=== PATIENT | female | born 1935 | race Caucasian/White ===

== ENCOUNTER 2022-05-21 15:40 | Inpatient (IN) | payer MEDICARE, MEDICAID, SELFPAY ==
[2022-05-21] VITALS (10 sets, daily range): BP systolic 133–143; BP diastolic 77–83; PULSE 85–114; RESP 17–20; TEMP 36.7–37.1; O2SAT 91–99; BMI 35.5
--- NOTE | 2022-05-21 15:59 | XRR_ITS ---
PROCEDURE INFORMATION: Exam: XR Chest Exam date and time: 05/21/2022 4:15 PM Age: 86 years old Clinical indication: Other: Hypoxia; Additional info: Hypoxia, covid? TECHNIQUE: Imaging protocol: Radiologic exam of the chest. Views: 1 view. COMPARISON: No relevant prior studies available. FINDINGS: Tubes, catheters and devices: Right PICC line terminates at the distal SVC. Lungs: Ill-defined peripheral opacities within the mid and lower lungs. Pleural spaces: Unremarkable. No pleural effusion. No pneumothorax. Heart/Mediastinum: Unremarkable. No cardiomegaly. Bones/joints: Sternotomy wires noted. Visualized osseous structures are intact. XR/XR chest 1V portable [id number] IMPRESSION: Ill-defined peripheral opacities within the mid and lower lungs suggestive of infiltrates.
--- NOTE | 2022-05-21 16:06 | P.HP_ITS ---
Providers/Chief Complaint Admitting Physician: Js Davis MD Primary Care Provider: Sandro Montana Chief Complaint: COVID Pneumonia History of Present Illness Alyx Jeffries is a 86 year old female who has been sent to our hospital for cardiac work-up. She has been admitted to the hospital for last 6 days for treatment of superimposed bacterial infection with underlying COVID-19, patient was diagnosed with COVID-19 on 30 April, she was discharged home however because of her worsening of symptoms she was admitted to the hospital. Her initial symptoms were nausea couple of episode of emesis without diarrhea. She never experienced any chest pain. At baseline uses 2 L secondary to her COPD, ex-smoker. Lives with her niece who is her power of mergers and acquisitions attorney. Patient is stating that this time she was struggling to breathe and was requiring more oxygen. Records were reviewed from outside facility, there is no summary available however from the laboratory work-up it seems like her kidney function has remained stable no severe leukocytosis, she received remdesivir, Decadron, Levaquin and vancomycin. She was on DVT prophylaxis Lovenox regimen. There was 1 day when her platelet dropped to 97,000 however they have been in upper 110s. No active bleeding. No chest pain. Patient has been transferred to our hospital because of her transient A. fib rhythm and worsening of infiltrate on her chest x-ray necessitating cardiac work-up. At the time of my evaluation she was on 4 L, respiratory please call me with the severe hypoxic values however I do believe there was venous blood gas I have requested RT to get an ABG Patient has no symptoms at all she is very pleasant and cooperative stating that she is DNR/DNI and her niece is the power of mergers and acquisitions attorney I requested venous Doppler, echo and CTA to rule out PE chest x-ray does show bilateral infiltrate procalcitonin is pending she is afebrile Review of Systems Const: Reports: chills, body aches and fatigue Eyes: Denies: change in vision ENMT: Denies: throat pain Card: Reports: dyspnea on exertion; Denies: chest pain Resp: Reports: dyspnea and productive cough GI: Reports: nausea : Denies: flank pain Musc: Denies: neck pain Skin/Breast: Denies: rash Neuro: Denies: headache(s) Psych: Reports: anxiety Endo: Denies: polyuria Jose De Jesus/Lymph: Denies: easy bruising All/Imm: Denies: urticaria Medications/Allergies Home Medications Medication Instructions Recorded Confirmed Last Taken Type ascorbic acid (vitamin C) 500 mg 500 mg PO DAILY 05/21/22 05/22/22 Unknown History tablet (Vitamin C) furosemide 80 mg tablet 80 mg PO DAILY 05/21/22 05/22/22 Unknown History gemfibrozil 600 mg tablet 600 mg PO BID 05/21/22 05/22/22 Unknown History glipizide 5 mg tablet 5 mg PO DAILY 05/21/22 05/22/22 Unknown History glucosamine sulfate 1,000 mg 1,000 mg PO DAILY 05/21/22 05/22/22 Unknown History capsule metoprolol tartrate 50 mg tablet 50 mg PO BID 05/21/22 05/22/22 Unknown History multivitamin 1 tab PO DAILY 05/21/22 05/22/22 Unknown History simvastatin 40 mg tablet 40 mg PO QPM 05/21/22 05/22/22 Unknown History tiotropium bromide 18 mcg capsule 1 cap inhalation DAILY 05/21/22 05/22/22 Unknown History with inhalation device (Spiriva with HandiHaler) albuterol sulfate 90 mcg/actuation 2 puff inhalation QID PRN 05/22/22 05/22/22 Unknown History aerosol inhaler Shortness Of Breath aspirin 81 mg tablet,delayed 81 mg PO DAILY 05/22/22 05/22/22 Unknown History release budesonide 0.5 mg/2 mL suspension 0.5 mg inhalation BID 05/22/22 05/22/22 Unknown History for nebulization cholecalciferol (vitamin D3) 10 10 mcg PO DAILY 05/22/22 05/22/22 Unknown History mcg (400 unit) tablet (Vitamin D3) cholecalciferol (vitamin D3) 25 25 mcg PO DAILY 05/22/22 05/22/22 Unknown History mcg (1,000 unit) tablet (Vitamin D3) potassium chloride 10 mEq 10 meq PO BID 05/22/22 05/22/22 Unknown History capsule,extended release Allergies Allergy/AdvReac Type Severity Reaction Status Date / Time ibuprofen Allergy Mild Unknown Verified 05/21/22 17:59 PFSH Acute PFSH: Medical History Chronic kidney disease Congestive heart failure COPD (chronic obstructive pulmonary disease) DNR (do not resuscitate) Hypertension Osteoarthritis Oxygen dependent 2L Type 2 diabetes mellitus Surgical History Hx of CABG Family History Other Diabetes Social History Smoking and tobacco status: former smoker Alcohol intake: never Household members: caregiver Physical Exam Narrative: Patient is sitting in a recliner currently on 4 L Bilateral breath sounds with crackles No conversational dyspnea Very pleasant cooperative Nonfocal neuro exam No signs of cyanosis Congestive heart failure signs present Bilateral lower extremity edema Patient is wearing compression stockings Abdomen soft S1, S2 Currently on 4 L without respiratory distress Appropriate mood and affect Data : 05/22/22 04:10 05/22/22 04:10 A&P Assessment and plan (1) COVID-19: Status: Acute (2) CHF exacerbation: Status: Acute (3) Thrombocytopenia: Status: Acute (4) A-fib: Status: Acute (5) Acute and chronic respiratory failure with hypoxia: Status: Acute Plan #COVID-19 pneumonia with superimposed bacterial infection #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 Continue on ceftriaxone and azithromycin ? Continue aspirin, dexamethasone 6 mg daily -Patient already completed 6 days of remdesivir at previous hospital so we will not repeat that at this time ? Continue on vitamin C, zinc, vitamin D supplements ? Continue on Lasix 40 IV daily ? Continue Tessalon Perles, inhaled budesonide ? Protonix 40 daily ?D-dimer is high. Check procalcitonin, check CTA chest to rule out PE, check venous Dopplers, check echo, check ABG -Check MRSA nares PCR, sputum culture gram stain, urine culture, repeat blood cultures -Check abdomen CT pelvis ? Due to COVID we will keep on Lovenox 80 twice daily therapeutic dose ED prophylaxis: On therapeutic Lovenox DNR/DNI Attestations Medical Necessity Statement*: Anticipating more than 2 midnights for management of superimposed bacterial infection COVID-19 infection Time Spent in Patient Care: 40 Coding Level of Care Code Acute Picker Machine Operator for Chg Fwd Diagnoses COVID-19 U07.1 CHF exacerbation I50.9 Thrombocytopenia D69.6 A-fib I48.91 Acute and chronic respiratory failure with hypoxia J96.21
[2022-05-21] MEDS: ipratropium-albuterol 3 mL Neb INHALATION ×3 (16:35→23:34)
--- NOTE | 2022-05-21 16:56 | ECG_ITS ---
[facility] Test Date: 2022-05-21 Pat Name: Alyx Jeffries Department: Room: 261 Gender: Female Counter Tender: : 1935 Requested By: Sabrina Fernandes Order Number: [id number] Sepideh MD: Mary Young M.D. Measurements Intervals Morris Rate: 103 P: 12 SC: 151 QRS: 26 QRSD: 76 T: 43 QT: 272 QTc: 358 Interpretive Statements SINUS TACHYCARDIA NONSPECIFIC ST & T-WAVE ABNORMALITY No previous ECG available for comparison Electronically Signed On 05-22-2022 6:10:15 CDT by Mary Young M.D. [id number]
[2022-05-21 17:28] LABS: Basophils % 0.1 %; Eosinophils % 0.1 %; Hematocrit 34.2 % (37.0-47.0); Hemoglobin 10.9 g/dL (11.5-15.3); Lymphocytes # 0.9 10^3/uL (0.8-4.8); Lymphocytes % 10.4 %; Mean Corpuscular HGB Conc 31.9 g/dL (30.0-36.0); Mean Corpuscular Hemoglobin 31.9 pg (28.0-34.0); Mean Platelet Volume 10.4 fL (7.4-10.4); Monocytes # 0.9 10^3/uL (0.2-0.9); Monocytes % 10.9 %; Neutrophils # 6.62 10^3/uL (1.8-7.7); Neutrophils % 77.9 %; Nucleated Red Blood Cells % 0 %; Platelet Count 135 10^3/cmm (130-400); Red Blood Count 3.42 10^6/uL (4.1-5.3); Red Cell Distribution Width 13.3 % (12.1-15.1); White Blood Count 8.5 10^3/uL (4.0-10.0)
[2022-05-21 17:46] LABS: INR 1.21 (0.8-1.2)
[2022-05-21 17:48] LABS: D Dimer 1.26 ug/mIFEU (0-0.59)
--- NOTE | 2022-05-21 17:52 | USCV_ITS ---
Alyx Jeffries Age: 86 Gender: F : 1935 Exam Date: 05/21/2022 19:11 Ordering Phys: Israel Rey MD Technologist: KADE Exam Location: [facility] [place] Indication: Chronic LE edema. No history of DVT per patient. HISTORY: Chronic LE edema. No history of DVT per patient. PROCEDURES: Venous duplex imaging was performed in bilateral lower extremities. The venous duplex Doppler examination of both lower extremities was performed in the standard fashion. The following venous structures were evaluated: common femoral vein, profunda vein, proximal portion of the greater saphenous vein, superficial femoral vein, and the popliteal vein. In addition, the posterior tibial veins were evaluated. Serial compression, augmentation maneuvers, and spectral Doppler flow evaluation were performed, which were normal. Bilaterally, the common femoral, superficial femoral, profunda femoral, popliteal, posterior tibial, and greater saphenous veins were identified and interrogated in the standard fashion. FINDINGS: Normal 2-D Doppler and augmentation and compressibility throughout the lower extremity venous structures. Additional imaging through the proximal calf veins also reveals no thrombus. Limited evaluation of the greater saphenous vein is patent with no thrombus. CONCLUSIONS No DVT bilateral lower extremities. Dr. Jessica Bright DO (Electronically Signed) Final Date: 22 May 2022 07:55 S
[2022-05-21 17:56] LABS: Troponin T (5th) Once 9 ng/L (0-10)
[2022-05-21 18:03] LABS: Procalcitonin 0.14 ng/mL (0-0.5)
[2022-05-21 18:14] LABS: Alanine Aminotransferase 26 U/L (0-33); Albumin Level 2.6 g/dL (3.5-5.2); Alkaline Phosphatase 70 U/L (35-105); Anion Gap 18.7 (5-19); Aspartate Amino Transferase 37 U/L (0-32); Blood Urea Nitrogen 18 mg/dL (8-23); C Reactive Protein 188.6 mg/L (0.0-4.9); Calcium 8.9 mg/dL (8.5-10.5); Carbon Dioxide 24 mmol/L (22-29); Chloride 96 mmol/L (98-107); Ferritin 539 ng/mL (15-150); Globulin 3.2 g/dL (1.3-4.6); Glucose 223 mg/dL (65-115); Magnesium 2.2 mg/dL (1.7-2.3); Osmolality Calculated 289 mOsm/kg (285-295); Phosphorus 2.9 mg/dL (2.5-4.5); Potassium 3.7 mmol/L (3.5-5.1); Sodium 135 mmol/L (136-145); Total Bilirubin 0.3 mg/dL (0.15-1.2); Total Protein 5.8 g/dL (6.6-8.7)
[2022-05-21 18:15] LABS: Lactic Sepsis W/Reflex 2.3 mmol/L (0.5-2.2)
[2022-05-21 18:16] LABS: ABG PH Result 7.48 (7.35-7.45); Arterial Blood Gas Hematocrit 34.6 % (37-47); Base Excess ABG 4.8 mmol/L (-2.0-2.0); Blood Gas Allen Test Pos; Blood Gas Sample Type Arterial; HCO3 ABG 28.5 mmol/L (22-26); PO2 ABG 46.8 mmHg (80.0-100.0)
[2022-05-21 18:21] LABS: NT Pro B Type Natriuretic Pept 900 pg/mL (0-450)
[2022-05-21 18:30] LABS: Chol HDL Ratio 3.19 mg/dL (0.0-4.40); Cholesterol 86 mg/dL (0-200); HDL Cholesterol 27 mg/dL (60-100); LDL Cholesterol Calculated 32 mg/dL (50-129); LDL HDL Ratio 1.19 RATIO (0.00-3.22); Triglycerides 135 mg/dL (0-150)
[2022-05-21 18:33] LABS: Blood Gas Sample Site Radial, right; Oxygen Device NC
[2022-05-21] MEDS: enoxaparin 80 mg/0.8 mL Syringe SUBCUT (18:33)
--- NOTE | 2022-05-21 18:35 | USCV_ITS ---
Alyx Jeffries Age: 86 Gender: F : 1935 Exam Date: 05/21/2022 20:48 Ordering Phys: Israel Rey MD Technologist: KADE Exam Location[place] [facility] [place] Indication: CHF. History of CABG 1998. BP: 133 / 77 HR: 110 Rhythm: Sinus tachycardia Technical Quality: Suboptimal MEASUREMENTS (Male / Female) Normal Values 2D ECHO LV Diastolic Diameter PLAX 3.5 cm 4.2 - 5.9 / 3.9 - 5.3 cm LV Systolic Diameter PLAX 2.0 cm IVS Diastolic Thickness 1.3 cm 0.6 - 1.0 / 0.6 - 0.9 cm IVS Systolic Thickness 1.6 cm LVPW Diastolic Thickness 1.5 cm 0.6 - 1.0 / 0.6 - 0.9 cm LVPW Systolic Thickness 1.7 cm LVOT Diameter 1.8 cm LV Ejection Fraction 2D Teich 74.8 % LV Ejection Fraction MOD 2C 79.5 % LV Ejection Fraction 2C AL 80.9 % LA Diameter 4.0 cm LA Width 2.9 cm LA Height 4.3 cm RA Width 4.0 cm RA Height 5.1 cm Aorta at Sinotubular Diameter 2.5 cm IVC Diameter 1.2 cm M-MODE Aortic Annulus Diameter 2.7 cm LA Ao Ratio MM 1.8 MV E Point Septal Separation 0.2 cm DOPPLER AV Peak Velocity 168.0 cm/s LVOT Peak Velocity 120.0 cm/s AV Area Cont Eq vti 1.8 cm squared AV Area Cont Eq pk 1.9 cm squared MV Area PHT 3.0 cm squared Mitral E to A Ratio 0.8 MV E' Velocity 45.0 cm/s Mitral E to MV E' Ratio 7.9 Mitral E to LV E' Lateral Ratio 6.4 Mitral E to LV E' Septal Ratio 10.3 TR Peak Velocity 308.0 cm/s TR Peak Gradient 37.9 mmHg TV Peak E Velocity 43.0 cm/s Right Atrial Pressure 10.0 mmHg Pulmonary Artery Systolic Pressu 47.9 mmHg PV Peak Velocity 141.0 cm/s RV Acceleration Time 0.1 s RV Ejection Time 0.3 s RV AcT/ET 0.2 FINDINGS Left Ventricle Normal left ventricular size, systolic function and wall thickness, with no regional wall motion abnormalities. Grade I/IV diastolic dysfunction (abnormal relaxation filling pattern), normal to mildly elevated filling pressures. Left ventricular ejection fraction is estimated at 60 %. Right Ventricle Normal right ventricular size and systolic function. Mild pulmonary hypertension, RVSP 47.9 mmHg. Right Atrium The right atrium is normal in size. Left Atrium Mildly increased left atrial size. Mitral Valve Structurally normal mitral valve. Trace mitral valve regurgitation. Aortic Valve Structurally normal trileaflet aortic valve. Mild aortic valve calcification. Mild aortic valve stenosis, mean gradient 5.1 mmHg, GINGER 1.8 cm squared. No aortic valve regurgitation. Tricuspid Valve Structurally normal tricuspid valve. [id number] tricuspid valve regurgitation. Pulmonic Valve Pulmonic valve not well visualized. Pericardium Normal pericardium without effusion. Aorta Normal ascending aorta dimension. IVC The inferior vena cava does not collapse normally with respiration. Right atrial pressure approximately 10 mmHg. CONCLUSIONS Normal left ventricular size, systolic function and wall thickness, with no regional wall motion abnormalities. Grade I/IV diastolic dysfunction (abnormal relaxation filling pattern), normal to mildly elevated filling pressures. Left ventricular ejection fraction is estimated at 60 %. Normal right ventricular size and systolic function. Mild pulmonary hypertension, RVSP 47.9 mmHg. Mildly increased left atrial size. Structurally normal mitral valve. Trace mitral valve regurgitation. Structurally normal trileaflet aortic valve. Mild aortic valve calcification. Mild aortic valve stenosis, mean gradient 5.1 mmHg, GINGER 1.8 cm squared. No aortic valve regurgitation. The inferior vena cava does not collapse normally with respiration. Right atrial pressure approximately 10 mmHg. There are no prior echocardiogram studies to compare. Dr. Nathaniel Aldana MD (Electronically Signed) Final Date: 22 May 2022 09:10 S
--- NOTE | 2022-05-21 18:35 | CTR_ITS ---
PROCEDURE INFORMATION: Exam: CTA Chest With Contrast Exam date and time: 05/21/2022 11:09 PM Age: 86 years old Clinical indication: Abnormal findings; Abnormal diagnostic tests; Elevated d-dimer; Shortness of breath; Prior surgery; Surgery type: Cabg; Patient HX: SOB with elevated d dimer. ; Additional info: Hypoxia TECHNIQUE: Imaging protocol: Computed tomographic angiography of the chest with contrast. 3D rendering (Not supervised by radiologist): MIP and/or 3D reconstructed images were created by the technologist. Radiation optimization: All CT scans at this facility use at least one of these dose optimization techniques: automated exposure control; mA and/or kV adjustment per patient size (includes targeted exams where dose is matched to clinical indication); or iterative reconstruction. Contrast material: OMNI 350; Contrast volume: 97 ml; Contrast route: INTRAVENOUS (IV); COMPARISON: CR (CHEST, ) 05/21/2022 4:15 PM RADIATION DOSE METRICS: Total DLP (mGy-cm): 719.8 FINDINGS: Pulmonary arteries: Pulmonary arteries are normal in caliber. No filling defects are demonstrated. No evidence of pulmonary embolism. Aorta: Atherosclerosis of the thoracic aorta. No aneurysm or dissection. Lungs: Diffuse bilateral ground-glass and confluent infiltrates noted throughout both lungs. Pleural spaces: No pleural effusion demonstrated. Heart: Mild cardiomegaly is noted. The coronary arteries demonstrate atherosclerotic calcifications. There is no significant pericardial effusion present. Lymph nodes: Nonspecific mild mediastinal adenopathy noted. Lymph nodes measuring up to 10 mm short axis are present. Liver: Calcified granulomas are seen in the liver. Spleen: Calcified granulomas are noted in the spleen. Bones/joints: Median sternotomy noted. Mild degenerative spine changes. No fracture or other acute osseous abnormality. Soft tissues: The soft tissues appear unremarkable. CT/CT angio chest PE protcl [id number] IMPRESSION: 1. No evidence of pulmonary embolism. 2. Diffuse bilateral ground-glass and confluent infiltrates noted throughout both lungs. Commonly reported imaging features of COVID-19 pneumonia are present. Other processes such as influenza pneumonia and organizing pneumonia, as can be seen with drug toxicity and connective tissue disease, can cause a similar imaging pattern. (Reference: Vijay) 3. Mild cardiomegaly is noted. 4. Nonspecific mild mediastinal adenopathy noted. Lymph nodes measuring up to 10 mm short axis are present. REFERENCES: Vijay Falcon, et al., Radiological Society of [place] Expert Consensus Statement on Reporting Chest CT Findings Related to COVID-19. Endorsed by the Society of Thoracic Radiology, the [place] [employer], and RSNA. Published December 14, 2019.
[2022-05-21 19:00] LABS: ABG PCO2 38.9 mmHg (35-45); ABG PH Result 7.47 (7.35-7.45); Alveolar-Arterial Oxygen Gradi 20.2 mmHg (5-10); Arterial Blood Gas Hematocrit 34.8 % (37-47); Base Excess ABG 4.5 mmol/L (-2.0-2.0); Blood Gas Allen Test Pos; Blood Gas Operator Identificat MONRO; Blood Gas Sample Site Radial, left; Blood Gas Sample Type Arterial; Carboxyhemoglobin 1.4 %THgb (0.4-20.1); HCO3 ABG 28.4 mmol/L (22-26); HGB O2 Sat 87.6 % (95-100); Ionized Calcium Level - ABG 1.2 mmol/L (1.1-1.4); Methemoglobin 0.7 % (0.4-1.5); Oxygen Device NC; Oxygen Saturation ABG 89.4; PO2 ABG 52.9 mmHg (80.0-100.0); Potassium Level - ABG 3.8 mmol/L (3.5-5.0); Total Hemoglobin 11.4 g/dL (12-16)
[2022-05-21 19:09] LABS: Reflex Lactate Order REFLEX LACTIC ORDERD
[2022-05-21] MEDS: budesonide 0.5 mg/2 mL Neb INHALATION (20:20)
[2022-05-21] MEDS: FUROsemide 10 mg/mL SDV 2mL 20 MG IVP (20:42)
[2022-05-21] MEDS: metoprolol tartrate 50 mg Tablet PO (20:46)
[2022-05-21] MEDS: potassium chloride ER 20 mEq Tablet PO (20:46)
[2022-05-21 23:02] LABS: Add Urine Microscopic? NO; Charge for UA Resulting for Rev
[2022-05-21 23:06] LABS: Bilirubin Urine Neg (Negative); Blood Urine Neg (Negative); Glucose Urine UA Norm (Normal); Ketones Urine Negative (Negative); Leukocyte Esterase Urine Negative (Negative); Nitrate Urine Negative (Negative); Protein Urine Neg (Negative); Urine Appearance Clear (CLEAR); Urine Color Yellow (Yellow); Urobilinogen Urine Norm (Negative); pH Urine 6 (5-7)
[2022-05-21] MEDS: iohexol 350 mg/mL 100 mL Btl IV (23:20)
[2022-05-22] VITALS (67 sets, daily range): BP systolic 91–135; BP diastolic 56–79; PULSE 62–168; RESP 0–96; TEMP 36.5–36.9; O2SAT 89–96
[2022-05-22] MEDS: ipratropium-albuterol 3 mL Neb INHALATION ×6 (04:51→23:45)
[2022-05-22 05:06] LABS: Basophils % 0.1 %; Eosinophils # 0.1 10^3/uL (0.0-0.8); Eosinophils % 1.4 %; Hematocrit 33.6 % (37.0-47.0); Hemoglobin 10.5 g/dL (11.5-15.3); Lymphocytes # 1.2 10^3/uL (0.8-4.8); Lymphocytes % 13.9 %; Mean Corpuscular HGB Conc 31.3 g/dL (30.0-36.0); Mean Corpuscular Hemoglobin 31.2 pg (28.0-34.0); Mean Corpuscular Volume 99.7 fl (81-99); Mean Platelet Volume 10.8 fL (7.4-10.4); Monocytes # 1.1 10^3/uL (0.2-0.9); Monocytes % 11.9 %; Neutrophils # 6.37 10^3/uL (1.8-7.7); Nucleated Red Blood Cells % 0 %; Platelet Count 151 10^3/cmm (130-400); Red Blood Count 3.37 10^6/uL (4.1-5.3); Red Cell Distribution Width 13.6 % (12.1-15.1); White Blood Count 8.8 10^3/uL (4.0-10.0)
[2022-05-22 05:07] LABS: ABG PCO2 40.7 mmHg (35-45); ABG PH Result 7.46 (7.35-7.45); Arterial Blood Gas Hematocrit 46.9 % (37-47); Base Excess ABG 4.7 mmol/L (-2.0-2.0); Blood Gas Allen Test Pos; Blood Gas Operator Identificat JB; Blood Gas Sample Site Radial, right; Blood Gas Sample Type Arterial; Oxygen Device HAG
[2022-05-22 05:40] LABS: Anion Gap 13.7 (5-19); Blood Urea Nitrogen 20 mg/dL (8-23); C Reactive Protein 129.6 mg/L (0.0-4.9); Calcium 8.9 mg/dL (8.5-10.5); Carbon Dioxide 29 mmol/L (22-29); Chloride 96 mmol/L (98-107); Glucose 175 mg/dL (65-115); Osmolality Calculated 287 mOsm/kg (285-295); Potassium 3.7 mmol/L (3.5-5.1); Sodium 135 mmol/L (136-145)
[2022-05-22] MEDS: enoxaparin 80 mg/0.8 mL Syringe SUBCUT (05:43)
[2022-05-22 05:46] LABS: Lactate (Lactic Acid level) 2.2 mmol/L (0.5-2.2)
[2022-05-22] MEDS: digoxin 250 mcg/ml INJ 2 mL 500 MCG IVP (06:38)
[2022-05-22 06:45] LABS: Ferritin 461 ng/mL (15-150)
--- NOTE | 2022-05-22 06:46 | PC.NURSE ---
TRANSFER Waiting for CSU bed. Digoxin IVP given. Will get Amiodorone started when moved to monitored bed
[2022-05-22 07:12] LABS: Thyroid Stimulating Hormone 1.38 uIU/mL (0.27-4.20)
--- NOTE | 2022-05-22 07:17 | CT_ITS ---
WS: [id number] CT ABDOMEN AND PELVIS NONCONTRAST HISTORY: bacteremia TECHNIQUE: Imaging performed through the abdomen and pelvis. Coronal and sagittal reformats are submi tted. All CT scans at [facility] use at least one of these dose optimization techniques: auto mated exposure control; mA and/or kV adjustment per patient size (includes targeted exams where dose is matched to clinical indication); or iterative reconstruction. DLP: 869.29 mGy.cm COMPARISON: None available. Lower thorax: Dense areas of consolidation and irregular opacifications at the lung bases. Heart is n ormal size. Small hiatal hernia. Liver: Mild hepatic steatosis and granulomata. Lobulated surface. Gallbladder: Negative unenhanced appearance of the gallbladder. Pancreas: Normal size and attenuation. Normal pancreatic duct. No pancreatitis or mass. Spleen: 14.2 cm in length. Adrenal glands: Normal. No mass. Right kidney: Mild atrophy and cortical thinning. Nonobstructing calcification. Vascular calcificatio ns. Contrast in the renal pelvis from a recent IV contrast injection. Left kidney: Mild atrophy. 1 cm cortical cyst upper pole. Additional calcifications and contrast with in the renal pelvis. Aorta: Moderate to severe atherosclerosis abdominal aorta. No aneurysm. Atherosclerosis continues int o the common iliac arteries. Moderate calcification at the origin of the celiac axis and SMA. No free fluid, intraperitoneal air or significant lymphadenopathy. GI tract: Negative stomach. No small bowel obstruction. The appendix is not identified with certainty . No secondary findings of appendicitis. Numerous diverticula throughout the colon. No evidence for a cute diverticulitis. Abdominal wall: Small umbilical hernia contains fat only. Small foci of air in the soft tissues of th e LEFT abdomen from prior injections. Pelvis: Atrophic uterus. No mass. No free fluid. Negative urinary bladder. Bladder is well distended with IV contrast from the prior injection. Osseous structures: Advanced spondylitic changes in the lumbar spine. L2 retrolisthesis by 5 mm. L5 a nterolisthesis by 7 mm and bilateral pars defects. CT/CT abdomen pelvis wo con [id number] IMPRESSION: 1. Dense areas of consolidation opacifications at the lung bases consistent wi th pneumonia. 2. No ascites or adenopathy. 3. 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 Spleen is enlarged. 4. Distal colon diverticulosis without acute diverticulitis. 5. No acute inflammatory process within the abdomen. 6. 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
--- NOTE | 2022-05-22 07:50 | PM.PN ---
Subjective Subjective: This morning. Patient is on heated high flow 35 L with 50% FiO2. I discussed with patient if she further deteriorates if she would be okay with BiPAP versus being intubated. She states that she has a living will and her all her kids know about this as well that she would not want to be intubated at all and she does not want CPR attempted either. She is a strict DNR/DNI. Regarding BiPAP mask she said when time comes we can talk about it. She is comfortable right now on 35 L. She says she does feel slightly short of breath when she moves around in the room otherwise is okay. Has not bringing up any phlegm. Denies chest pain. No lower extremity swelling. Early this morning patient went into A. fib with RVR. Amiodarone drip was ordered but it could not be given on the floor she was on. She was also given digoxin load. By the time she was moved to cardiac floor and drip was about to be started. Her heart rate came down to 80 range. Amnio drip was not given. She is asymptomatic at this time. Vitals/I&O/Wt Last Vital Signs Temp 97.7 F 05/22/22 04:00 Pulse 144 H 05/22/22 06:00 Resp 17 05/22/22 04:53 BP 96/56 05/22/22 04:00 Pulse Ox 91 05/22/22 04:53 O2 Del Method 05/22/22 04:52 O2 Flow Rate 30 05/22/22 04:53 FiO2 60 05/22/22 04:53 05/21/22 05/22/22 05/22/22 22:59 06:59 14:59 Intake Total 120 / 120 360 / 480 Output Total 600 / 600 1200 / 1800 Balance -480 / -480 -840 / -1320 Weight last 48 hrs Weight 85.275 kg Physical Exam Narrative: General: Alert oriented x3, patient seen laying in recliner appearing comfortable at this time on 35 L high at high flow. HEENT: Normocephalic, atraumatic, EOMI, breathing normally Cardio: Regular rate rhythm, normal S1-S2 Respiratory: Diffuse rhonchi lower half of bilateral lung sherman, otherwise coarse breath sounds GI: Abdomen soft, nontender, nondistended, bowel sounds + Behavior: Appropriate and cooperative Extremities: 1+ edema bilaterally lower extremity Data : 05/22/22 04:10 05/22/22 04:10 Micro: Microbiology 05/21/22 22:55 Legionella Urinary Antigen - Final Urine,Clean Catch 05/21/22 17:01 Blood Culture - Preliminary Blood SPECIMEN COLLECTED 05/21/22 17:06 Blood Culture - Preliminary Blood SPECIMEN COLLECTED A&P Assessment and plan (1) Acute and chronic respiratory failure with hypoxia: Status: Acute (2) A-fib: Status: Acute (3) Thrombocytopenia: Status: Acute (4) CHF exacerbation: Status: Acute (5) COVID-19: Status: Acute Plan #COVID-19 pneumonia with superimposed bacterial infection #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 Continue on ceftriaxone and azithromycin ? Continue aspirin, dexamethasone 6 mg daily -Patient already completed 6 days of remdesivir at previous hospital so we will not repeat that at this time ? Continue on vitamin C, zinc, vitamin D supplements ? Continue on Lasix 40 IV daily ? Continue Tessalon Perles, inhaled desonide ? Protonix 40 daily ? Continue on digoxin. 500 load given this morning. Will load and start on 125 starting tomorrow. -Check MRSA nares PCR, sputum culture gram stain, urine culture, repeat blood cultures -Check abdomen CT pelvis ? CTA chest ruled out PE ? Due to COVID we will keep on Lovenox 80 twice daily therapeutic dose PT OT ordered but will start once patient's oxygen requirements come down CODE STATUS: DNR/DNI Will update her niece over the phone today. 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
[2022-05-22] MEDS: budesonide 0.5 mg/2 mL Neb INHALATION ×2 (08:01→21:38)
--- NOTE | 2022-05-22 08:16 | PC.PHAR ---
pts halinajarocho godoy [phone] states the pt has been in a different hospital and was sent here last night-medications entered are medications the pt was taking at home before her stay at a different hospital and this hospital-unsure of medication pt was receiving at the other hospital-pt brought in med bottles-meds were in pts room in a black bag by the sink-pts alo states the pt uses budesonide 0.5mg bid states she didnt send that with the pt-
[2022-05-22] MEDS: azithromycin 250 mg Tablet 500 MG PO (10:19)
[2022-05-22] MEDS: sennosides-docusate Tablet 1 TAB PO (10:19)
[2022-05-22] MEDS: cefTRIAXone 1,000 MG in sodium chloride 0.9% (plus) 50 ML 100 MG IV (10:19)
[2022-05-22] MEDS: dexamethasone 4 mg Tablet 6 MG PO (10:20)
[2022-05-22] MEDS: ascorbic acid 500 mg Tablet PO (10:20)
[2022-05-22] MEDS: aspirin 81 mg EC Tablet PO (10:20)
[2022-05-22] MEDS: potassium chloride ER 20 mEq Tablet PO (10:20)
[2022-05-22] MEDS: pantoprazole DR 40 mg Tablet PO (10:20)
--- NOTE | 2022-05-22 12:25 | XR_ITS ---
WS: [id number] Exam: XR chest 1V portable [id number] Date/Time of Exam: 05/22/2022 12:26 PM Reason For Exam: follow up Comparison 05/21/2022. Patchy infiltrates noted throughout both lungs show little change since the last exam. Heart size is top limits normal. Signs of previous median sternotomy. Right-sided PICC line ends at the cavoatrial junction. No pleural effusions or pneumothorax. Bony structures are intact. XR/XR chest 1V portable [id number] IMPRESSION: 1. Patchy infiltrates noted throughout both lungs suggesting pneumonia. No sign ificant change.
[2022-05-22] MEDS: digoxin 250 mcg/ml INJ 2 mL IVP (13:00)
[2022-05-22] MEDS: metoprolol tartrate 25 mg Tablet PO (14:02)
--- NOTE | 2022-05-22 14:36 | PC.OT ---
HOLD OT EVALUATION TODAY DUE TO ELEVATED HR AND CONTINUED NEED FOR HEATED HIGH FLOW.
[2022-05-23] VITALS (22 sets, daily range): BP systolic 116–153; BP diastolic 54–94; PULSE 94–118; RESP 16–26; TEMP 36.4–36.8; O2SAT 91–97
[2022-05-23] MEDS: ipratropium-albuterol 3 mL Neb INHALATION ×5 (03:18→20:15)
[2022-05-23 05:29] LABS: Hematocrit 30.3 % (37.0-47.0); Hemoglobin 9.7 g/dL (11.5-15.3); Lymphocytes # 0.3 10^3/uL (0.8-4.8); Lymphocytes % 10.3 %; Mean Corpuscular Hemoglobin 31.4 pg (28.0-34.0); Mean Corpuscular Volume 98.1 fl (81-99); Mean Platelet Volume 10.1 fL (7.4-10.4); Monocytes # 0.4 10^3/uL (0.2-0.9); Monocytes % 15.4 %; Neutrophils # 1.87 10^3/uL (1.8-7.7); Neutrophils % 73.9 %; Nucleated Red Blood Cells % 0 %; Platelet Count 114 10^3/cmm (130-400); Red Blood Count 3.09 10^6/uL (4.1-5.3); Red Cell Distribution Width 13.6 % (12.1-15.1); White Blood Count 2.5 10^3/uL (4.0-10.0)
[2022-05-23 05:51] LABS: Alanine Aminotransferase 21 U/L (0-33); Albumin Level 2.6 g/dL (3.5-5.2); Alkaline Phosphatase 66 U/L (35-105); Aspartate Amino Transferase 17 U/L (0-32); Blood Urea Nitrogen 14 mg/dL (8-23); Calcium 9.5 mg/dL (8.5-10.5); Carbon Dioxide 29 mmol/L (22-29); Globulin 2.9 g/dL (1.3-4.6); Glucose 300 mg/dL (65-115); Total Bilirubin 0.3 mg/dL (0.15-1.2); Total Protein 5.5 g/dL (6.6-8.7)
[2022-05-23 06:33] LABS: Anion Gap 15.5 (5-19); Chloride 98 mmol/L (98-107); Osmolality Calculated 298 mOsm/kg (285-295); Potassium 4.5 mmol/L (3.5-5.1); Sodium 138 mmol/L (136-145)
[2022-05-23] MEDS: budesonide 0.5 mg/2 mL Neb INHALATION ×2 (08:03→20:16)
[2022-05-23] MEDS: sennosides-docusate Tablet 1 TAB PO (09:10)
[2022-05-23] MEDS: aspirin 81 mg EC Tablet PO (09:10)
[2022-05-23] MEDS: ascorbic acid 500 mg Tablet PO (09:10)
[2022-05-23] MEDS: dexamethasone 4 mg Tablet 6 MG PO (09:10)
[2022-05-23] MEDS: pantoprazole DR 40 mg Tablet PO (09:10)
[2022-05-23] MEDS: potassium chloride ER 20 mEq Tablet PO (09:10)
[2022-05-23] MEDS: enoxaparin 40 mg/0.4 mL Syringe SUBCUT (09:11)
[2022-05-23] MEDS: digoxin 125 mcg Tablet PO (10:13)
--- NOTE | 2022-05-23 14:15 | PM.PN ---
Subjective Subjective: seen this AM. patient still requiring HHF 35L. Feels better however eating breakfast when seen Niece was updated on phone yesterday. BG 300 this AM. Vitals/I&O/Wt Last Vital Signs Temp 98.0 F 05/23/22 11:28 Pulse 106 H 05/23/22 12:13 Resp 18 05/23/22 12:13 BP 135/67 05/23/22 11:28 Pulse Ox 96 05/23/22 12:13 O2 Del Method 05/23/22 12:13 O2 Flow Rate 35 05/23/22 12:13 FiO2 35 05/23/22 12:13 05/22/22 05/23/22 05/23/22 22:59 06:59 14:59 Intake Total 320 / 1550 160 / 1710 474 / 474 Output Total 800 / 800 300 / 1100 Balance -480 / 750 -140 / 610 474 / 474 Weight last 48 hrs Weight 85.275 kg Physical Exam Narrative: General: Alert oriented x3, patient seen laying in recliner appearing comfortable at this time on 35 L high at high flow. HEENT: Normocephalic, atraumatic, EOMI, breathing normally Cardio: Regular rate rhythm, normal S1-S2 Respiratory: Diffuse rhonchi lower half of bilateral lung sherman, otherwise coarse breath sounds GI: Abdomen soft, nontender, nondistended, bowel sounds + Behavior: Appropriate and cooperative Extremities: 1+ edema bilaterally lower extremity Data : 05/23/22 05:21 05/23/22 05:21 Micro: Microbiology 05/21/22 21:00 Gram Stain - Final Sputum - Expectorated Sputum Sputum Culture - Preliminary 05/21/22 18:15 Urine Culture - Final Urine,Voided 05/21/22 17:01 Blood Culture - Preliminary Blood NEGATIVE TO DATE 05/21/22 17:06 Blood Culture - Preliminary Blood NEGATIVE TO DATE 05/21/22 21:45 MRSA Culture - Final Nose 05/21/22 22:55 Legionella Urinary Antigen - Final Urine,Clean Catch Bacterial Antigens - Final A&P Assessment and plan (1) Acute and chronic respiratory failure with hypoxia: Status: Acute (2) A-fib: Status: Acute (3) Thrombocytopenia: Status: Acute (4) CHF exacerbation: Status: Acute (5) COVID-19: Status: Acute Plan #COVID-19 pneumonia with superimposed bacterial infection #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 Continue on imipenem q6h ? Continue aspirin, dexamethasone 6 mg daily - Patient already completed 6 days of remdesivir at previous hospital so we will not repeat that at this time ? Continue on vitamin C, zinc, vitamin D supplements ? Continue on Lasix 40 IV daily ? Continue Tessalon Perles, inhaled desonide ? Protonix 40 daily ? Continue on digoxin 125 mcg daily. -Check MRSA nares PCR, sputum culture gram stain, urine culture, repeat blood cultures -Check abdomen CT pelvis ? CTA chest ruled out PE ? lovenox 40 daily for DVT PPX. - BG high. Add sliding scale insulin and accuchecks. 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
[2022-05-23 16:47] LABS: Glucose Point of Care 467 mg/dL (70-110)
[2022-05-23] MEDS: insulin lispro 100 unit/1 mL SUBCUT ×2 (17:30→21:18)
[2022-05-23 17:52] LABS: Estmated Average Glucose 166; Hemoglobin A1C 7.4 % (4.0-6.0)
[2022-05-23 21:11] LABS: Glucose Point of Care 382 mg/dL (70-110)
[2022-05-23] MEDS: insulin glargine 100 units/1 mL 10 UNIT SUBCUT (21:18)
[2022-05-24] VITALS (21 sets, daily range): BP systolic 105–155; BP diastolic 53–74; PULSE 75–112; RESP 14–18; TEMP 36.5–37.4; O2SAT 90–96
[2022-05-24] MEDS: ipratropium-albuterol 3 mL Neb INHALATION ×6 (04:37→23:22)
[2022-05-24 05:35] LABS: Eosinophils % 0.8 %; Hematocrit 32.6 % (37.0-47.0); Hemoglobin 10.4 g/dL (11.5-15.3); Lymphocytes # 0.4 10^3/uL (0.8-4.8); Mean Corpuscular HGB Conc 31.9 g/dL (30.0-36.0); Mean Corpuscular Hemoglobin 31.4 pg (28.0-34.0); Mean Corpuscular Volume 98.5 fl (81-99); Mean Platelet Volume 10.2 fL (7.4-10.4); Monocytes # 0.5 10^3/uL (0.2-0.9); Monocytes % 20.7 %; Neutrophils # 1.58 10^3/uL (1.8-7.7); Neutrophils % 61.7 %; Nucleated Red Blood Cells % 0 %; Platelet Count 131 10^3/cmm (130-400); Red Blood Count 3.31 10^6/uL (4.1-5.3); Red Cell Distribution Width 13.5 % (12.1-15.1); White Blood Count 2.6 10^3/uL (4.0-10.0)
[2022-05-24 06:00] LABS: Blood Urea Nitrogen 17 mg/dL (8-23); C Reactive Protein 47.6 mg/L (0.0-4.9); Calcium 9.8 mg/dL (8.5-10.5); Carbon Dioxide 30 mmol/L (22-29); Chloride 99 mmol/L (98-107); Glucose 131 mg/dL (65-115); Magnesium 2.2 mg/dL (1.7-2.3); Osmolality Calculated 289 mOsm/kg (285-295); Sodium 138 mmol/L (136-145)
[2022-05-24 06:48] LABS: Glucose Point of Care 147 mg/dL (70-110)
[2022-05-24] MEDS: budesonide 0.5 mg/2 mL Neb INHALATION ×2 (07:26→19:45)
[2022-05-24] MEDS: insulin lispro 100 unit/1 mL SUBCUT ×4 (08:20→22:03)
[2022-05-24] MEDS: dexamethasone 4 mg Tablet 6 MG PO (09:50)
[2022-05-24] MEDS: enoxaparin 40 mg/0.4 mL Syringe SUBCUT (09:50)
[2022-05-24] MEDS: ascorbic acid 500 mg Tablet PO (09:51)
[2022-05-24] MEDS: pantoprazole DR 40 mg Tablet PO (09:51)
[2022-05-24] MEDS: digoxin 125 mcg Tablet PO (09:51)
[2022-05-24] MEDS: sennosides-docusate Tablet 1 TAB PO (09:51)
[2022-05-24] MEDS: aspirin 81 mg EC Tablet PO (09:51)
[2022-05-24 11:09] LABS: Glucose Point of Care 171 mg/dL (70-110)
--- NOTE | 2022-05-24 12:21 | PC.SOCIAL ---
IMM Update pg 2 of IMM updated and reviewed w/ patient. Copy provided and Copy dated, initialed and placed in chart.
--- NOTE | 2022-05-24 13:46 | PM.PN ---
Subjective Subjective: Patient is feeling a lot better compared to before. He is on 8 L nasal cannula at this time family present at bedside. She feels better and improving. Vitals/I&O/Wt Last Vital Signs Temp 98.3 F 05/24/22 12:00 Pulse 112 H 05/24/22 12:00 Resp 15 05/24/22 12:00 BP 105/53 05/24/22 12:00 Pulse Ox 92 05/24/22 12:00 O2 Del Method 05/24/22 12:00 O2 Flow Rate 5.5 05/24/22 12:00 FiO2 35 05/24/22 08:00 05/23/22 05/24/22 05/24/22 22:59 06:59 14:59 Intake Total 340 / 914 220 / 1134 640 / 640 Output Total 1200 / 1200 1100 / 2300 300 / 300 Balance -860 / -286 -880 / -1166 340 / 340 Physical Exam Narrative: General: Alert oriented x3, patient seen laying in recliner appearing comfortable at this time on 8 L of nasal cannula. HEENT: Normocephalic, atraumatic, EOMI, breathing normally Cardio: Regular rate rhythm, normal S1-S2 Respiratory: Diffuse rhonchi lower half of bilateral lung sherman, otherwise coarse breath sounds, no improvement in auscultation compared to yesterday. Mild crackles at bases. 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 Continue on imipenem q6h, will treat for total 7 days. ? Continue aspirin, dexamethasone 6 mg daily. She is status post Actemra on May 22, 2022 - Patient already completed 6 days of remdesivir at previous hospital so we will not repeat that at this time ? Continue on vitamin C, zinc, vitamin D supplements ? Give Lasix 40x1 today. ? Continue Tessalon Perles, inhaled budesonide ? Protonix 40 daily ? Continue on digoxin 125 mcg daily. -MRSA nares negative, sputum culture gram stain negative, bacterial antigens strep and Legionella negative. -Chest abdomen CT pelvis shows dense areas of consolidation opacifications at lung bases consistent with pneumonia, findings suspicion for cirrhosis and portal venous hypertension, spleen is enlarged ? CTA chest ruled out PE ? lovenox 40 daily for DVT PPX. -Continue Lantus 10 at bedtime, insulin sliding scale. ? We will check digoxin level. -Blood cultures negative during this stay. PT OT ordered but will start once patient's oxygen requirements come down CODE STATUS: DNR/DNI Family updated at bedside. Attestations Medical Necessity Statement*: Anticipate 48 to 72-hour stay at this time. Patient improving. 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
[2022-05-24] MEDS: FUROsemide 10 mg/mL SDV 4mL 40 MG IVP (14:10)
[2022-05-24 15:17] LABS: Digoxin 1.1 ng/mL (0.6-1.2)
[2022-05-24 17:04] LABS: Glucose Point of Care 416 mg/dL (70-110)
[2022-05-24 21:23] LABS: Glucose Point of Care 267 mg/dL (70-110)
[2022-05-24] MEDS: metoprolol tartrate 25 mg Tablet 12.5 MG PO (22:02)
[2022-05-24] MEDS: insulin glargine 100 units/1 mL 10 UNIT SUBCUT (22:03)
[2022-05-25] VITALS (19 sets, daily range): BP systolic 98–151; BP diastolic 58–84; PULSE 69–105; RESP 12–20; TEMP 36.6–36.9; O2SAT 91–99
[2022-05-25] MEDS: ipratropium-albuterol 3 mL Neb INHALATION ×6 (03:16→23:42)
[2022-05-25 06:19] LABS: Glucose Point of Care 173 mg/dL (70-110)
[2022-05-25 06:22] LABS: Eosinophils % 0.9 %; Hematocrit 33.7 % (37.0-47.0); Hemoglobin 10.7 g/dL (11.5-15.3); Lymphocytes # 0.4 10^3/uL (0.8-4.8); Lymphocytes % 18.5 %; Mean Corpuscular HGB Conc 31.8 g/dL (30.0-36.0); Mean Corpuscular Hemoglobin 31.5 pg (28.0-34.0); Mean Corpuscular Volume 99.1 fl (81-99); Mean Platelet Volume 10.3 fL (7.4-10.4); Monocytes # 0.5 10^3/uL (0.2-0.9); Monocytes % 24.1 %; Neutrophils # 1.18 10^3/uL (1.8-7.7); Neutrophils % 54.6 %; Nucleated Red Blood Cells % 0 %; Platelet Count 120 10^3/cmm (130-400); Red Cell Distribution Width 13.7 % (12.1-15.1); White Blood Count 2.2 10^3/uL (4.0-10.0)
[2022-05-25 06:39] LABS: Anion Gap 13.7 (5-19); Blood Urea Nitrogen 18 mg/dL (8-23); Calcium 9.6 mg/dL (8.5-10.5); Carbon Dioxide 33 mmol/L (22-29); Chloride 95 mmol/L (98-107); Glucose 167 mg/dL (65-115); Magnesium 2.2 mg/dL (1.7-2.3); Osmolality Calculated 290 mOsm/kg (285-295); Potassium 4.7 mmol/L (3.5-5.1); Sodium 137 mmol/L (136-145)
[2022-05-25] MEDS: budesonide 0.5 mg/2 mL Neb INHALATION ×2 (08:05→20:07)
[2022-05-25] MEDS: insulin lispro 100 unit/1 mL SUBCUT ×4 (09:08→21:46)
[2022-05-25] MEDS: enoxaparin 40 mg/0.4 mL Syringe SUBCUT (09:09)
[2022-05-25] MEDS: dexamethasone 4 mg Tablet 6 MG PO (09:11)
[2022-05-25] MEDS: sennosides-docusate Tablet 1 TAB PO (09:11)
[2022-05-25] MEDS: aspirin 81 mg EC Tablet PO (09:11)
[2022-05-25] MEDS: ascorbic acid 500 mg Tablet PO (09:12)
[2022-05-25] MEDS: pantoprazole DR 40 mg Tablet PO (09:12)
[2022-05-25] MEDS: metoprolol tartrate 25 mg Tablet 12.5 MG PO (09:12)
[2022-05-25] MEDS: FUROsemide 10 mg/mL SDV 4mL 40 MG IVP ×2 (09:21→20:55)
--- NOTE | 2022-05-25 09:25 | PC.NURSE ---
Dr. Fernandes gave verbal orders to give 40 mg of lasix ivp once.
--- NOTE | 2022-05-25 11:43 | PM.PN ---
Subjective Subjective: +1350 cc fluid balance. Vitals/I&O/Wt Last Vital Signs Temp 98.3 F 05/25/22 07:58 Pulse 104 H 05/25/22 11:21 Resp 20 H 05/25/22 11:16 BP 151/75 05/25/22 07:58 Pulse Ox 93 05/25/22 11:16 O2 Del Method 05/25/22 11:16 O2 Flow Rate 5 05/25/22 11:16 FiO2 35 05/25/22 04:00 05/24/22 05/25/22 05/25/22 22:59 06:59 14:59 Intake Total 1290 / 2030 340 / 2370 240 / 240 Output Total 900 / 1200 Balance 390 / 830 340 / 1170 240 / 240 Physical Exam Narrative: General: Alert oriented x3, patient seen laying in recliner appearing comfortable at this time on 5 L of nasal cannula. HEENT: Normocephalic, atraumatic, EOMI, breathing normally Cardio: Regular rate rhythm, normal S1-S2 Respiratory: Crackles bilaterally at bases, otherwise clear to auscultation GI: Abdomen soft, nontender, nondistended, bowel sounds + Behavior: Appropriate and cooperative Extremities: Trace edema bilaterally lower extremity Data : 05/25/22 05:00 05/25/22 05:00 Micro: Microbiology 05/21/22 21:00 Gram Stain - Final Sputum - Expectorated Sputum Sputum Culture - Final A&P Assessment and plan (1) Acute and chronic respiratory failure with hypoxia: Status: Acute (2) A-fib: Status: Acute (3) Thrombocytopenia: Status: Acute (4) CHF exacerbation: Status: Acute (5) COVID-19: Status: Acute Plan #COVID-19 pneumonia with superimposed bacterial infection #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 Continue on imipenem q6h, will treat for total 7 days. Patient did get Vanco and Levaquin at previous hospital and was deteriorating and not improving. ? Continue aspirin, dexamethasone 6 mg daily. She is status post Actemra on May 22, 2022 - Patient already completed 6 days of remdesivir at previous hospital so we will not repeat that at this time ? Continue on vitamin C, zinc, vitamin D supplements ? We will diurese patient. Lasix 40 IV twice daily. ? Continue Tessalon Perles, inhaled budesonide ? Protonix 40 daily ? Stop digoxin. -MRSA nares negative, sputum culture gram stain negative, bacterial antigens strep and Legionella negative. -Chest abdomen CT pelvis shows dense areas of consolidation opacifications at lung bases consistent with pneumonia, findings suspicion for cirrhosis and portal venous hypertension, spleen is enlarged ? CTA chest ruled out PE ? lovenox 40 daily for DVT PPX. -Continue Lantus 10 at bedtime, insulin sliding scale. -Blood cultures negative during this stay. -Restart metoprolol 25 twice daily and titrate up to 50. Home dose. PT OT CODE STATUS: DNR/DNI Family updated at bedside. Attestations Medical Necessity Statement*: Needs continued IV diuresis. Most likely will improve for the next 24 to 48 hours. 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
[2022-05-25 12:07] LABS: Glucose Point of Care 184 mg/dL (70-110)
[2022-05-25] MEDS: metoprolol tartrate 25 mg Tablet PO ×2 (12:46→20:55)
[2022-05-25 16:48] LABS: Glucose Point of Care 239 mg/dL (70-110)
[2022-05-25 21:39] LABS: Glucose Point of Care 257 mg/dL (70-110)
[2022-05-25] MEDS: insulin glargine 100 units/1 mL 10 UNIT SUBCUT (21:45)
[2022-05-26] VITALS (16 sets, daily range): BP systolic 98–154; BP diastolic 54–88; PULSE 72–120; RESP 12–20; TEMP 36.3–36.8; O2SAT 89–97
[2022-05-26] MEDS: ipratropium-albuterol 3 mL Neb INHALATION ×5 (03:02→19:34)
[2022-05-26 05:12] LABS: Hematocrit 36.1 % (37.0-47.0); Hemoglobin 11.5 g/dL (11.5-15.3); Lymphocytes # 0.5 10^3/uL (0.8-4.8); Mean Corpuscular HGB Conc 31.9 g/dL (30.0-36.0); Mean Corpuscular Hemoglobin 31.4 pg (28.0-34.0); Mean Corpuscular Volume 98.6 fl (81-99); Mean Platelet Volume 10.2 fL (7.4-10.4); Monocytes # 0.6 10^3/uL (0.2-0.9); Monocytes % 29.1 %; Neutrophils % 45.4 %; Nucleated Red Blood Cells % 0 %; Platelet Count 130 10^3/cmm (130-400); Red Blood Count 3.66 10^6/uL (4.1-5.3); Red Cell Distribution Width 13.9 % (12.1-15.1)
[2022-05-26 05:42] LABS: Anion Gap 14.4 (5-19); Blood Urea Nitrogen 22 mg/dL (8-23); Calcium 9.6 mg/dL (8.5-10.5); Carbon Dioxide 35 mmol/L (22-29); Chloride 93 mmol/L (98-107); Glucose 197 mg/dL (65-115); Osmolality Calculated 295 mOsm/kg (285-295); Potassium 4.4 mmol/L (3.5-5.1); Sodium 138 mmol/L (136-145)
[2022-05-26 05:45] LABS: Neutrophils # 0.89 10^3/uL (1.8-7.7)
[2022-05-26 06:21] LABS: Glucose Point of Care 189 mg/dL (70-110)
[2022-05-26] MEDS: budesonide 0.5 mg/2 mL Neb INHALATION ×2 (07:25→19:34)
[2022-05-26] MEDS: enoxaparin 40 mg/0.4 mL Syringe SUBCUT (09:31)
[2022-05-26] MEDS: dexamethasone 4 mg Tablet 6 MG PO (09:31)
[2022-05-26] MEDS: metoprolol tartrate 25 mg Tablet PO ×2 (09:32→20:25)
[2022-05-26] MEDS: sennosides-docusate Tablet 1 TAB PO (09:32)
[2022-05-26] MEDS: ascorbic acid 500 mg Tablet PO (09:32)
[2022-05-26] MEDS: pantoprazole DR 40 mg Tablet PO (09:32)
[2022-05-26] MEDS: aspirin 81 mg EC Tablet PO (09:32)
[2022-05-26] MEDS: FUROsemide 10 mg/mL SDV 4mL 40 MG IVP (09:32)
[2022-05-26] MEDS: insulin lispro 100 unit/1 mL SUBCUT ×4 (09:33→22:01)
--- NOTE | 2022-05-26 09:42 | PC.SOCIAL ---
IMM update IMM updated with patient. Verbalized an understanding. Initialled, dated, timed, and placed in chart.
[2022-05-26 11:39] LABS: Glucose Point of Care 251 mg/dL (70-110)
--- NOTE | 2022-05-26 15:18 | PM.PN ---
Subjective Subjective: Patient is currently saturating well on 3 L/min supplemental O2. 94%. Denies any dyspnea palpitations or chest pain. Feels well overall. Urine output at 2.9 L. Net -1.3 L over the last 24 hours. Leukopenic with WBC count at 2. Afebrile and hemodynamically stable. Medications: Reviewed: Yes Vitals/I&O/Wt Last Vital Signs Temp 98.2 F 05/26/22 11:41 Pulse 98 05/26/22 11:41 Resp 16 05/26/22 11:41 BP 112/71 05/26/22 11:41 Pulse Ox 94 05/26/22 11:41 O2 Del Method 05/26/22 11:41 O2 Flow Rate 3 05/26/22 11:13 FiO2 35 05/25/22 18:52 05/26/22 05/26/22 05/26/22 06:59 14:59 22:59 Intake Total 100 / 1260 960 / 960 Output Total 1500 / 2900 Balance -1400 / -1640 960 / 960 Physical Exam Narrative: General: No acute distress, AO x3 HEENT: PERRLA, pupils bilaterally equal and reactive, pallors not present Chest: Normal vesicular breath sounds, no added sounds, equal good air entry bilaterally CVS: S1-S2 regular, no murmurs, no tachycardia, no gallops, no rubs Abdomen: Soft, nontender, no organomegaly, bowel sounds present Neuro: No focal deficits, no facial deformity, AO x3, power 5/5 in all limbs Extremities: 1+ pitting edema Data : 05/26/22 04:45 05/26/22 04:45 A&P Assessment and plan (1) Acute and chronic respiratory failure with hypoxia: Status: Acute (2) A-fib: Status: Acute (3) Thrombocytopenia: Status: Acute (4) CHF exacerbation: Status: Acute (5) COVID-19: Status: Acute Plan #COVID-19 pneumonia with superimposed bacterial infection CT chest on 05/21 with diffuse bilateral GGO's and infiltrates in both lung sherman. Suggestive of COVID-19 pneumonia. She has received 6 days of remdesivir at [facility] prior to transfer here. Additionally on dexamethasone 6 mg IV daily Status post Actemra on May 22, 2022. Currently she is back to her baseline oxygen requirements at 3 L/min. Continue DuoNeb every 4 hours and budesonide twice daily Discontinue imipenem, antibiotic day 5 today. May be contributing to leukopenia. Since she is currently neutropenic with ANC of 0.8 with the falling trend, will maintain antibiotic prophylaxis with Levaquin for now. Plan to discontinue if ANC shows continuous increase. -MRSA nares negative, sputum culture gram stain negative, bacterial antigens strep and Legionella negative. -No evidence of PE on CTA. #Acute diastolic CHF exacerbation Echocardiogram shows grade 1 diastolic dysfunction. LVEF at 60%. Mild pulmonary hypertension is noted. Mild aortic valve stenosis GINGER 1.8 cm?. Currently on Lasix 40 mg IV every 12 hours. We will change this to Lasix p.o. 60 every 12. #Positive blood cultures at previous hospital stay which appeared to be contaminants. Blood cultures are currently negative. #Atrial fibrillation with RVR, currently rate controlled. 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 No abdominal symptoms at this present time. PT OT CODE STATUS: DNR/DNI Family updated at bedside. Attestations Medical Necessity Statement*: COVID-19 pneumonia, currently clinically improving. Change IV diuresis to p.o. today. Discontinue antibiotics. Monitor over the next 24 to 48 hours during which timeframe discharge is anticipated. 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
[2022-05-26] MEDS: FUROsemide 40 mg Tablet 60 MG PO (16:18)
[2022-05-26 16:50] LABS: Glucose Point of Care 359 mg/dL (70-110)
[2022-05-26 20:45] LABS: Glucose Point of Care 233 mg/dL (70-110)
[2022-05-26] MEDS: insulin glargine 100 units/1 mL 10 UNIT SUBCUT (22:01)
[2022-05-27] VITALS (13 sets, daily range): BP systolic 117–144; BP diastolic 72–82; PULSE 82–99; RESP 16–20; TEMP 36.3–36.9; O2SAT 83–96
[2022-05-27] MEDS: ipratropium-albuterol 3 mL Neb INHALATION ×4 (01:01→11:14)
[2022-05-27 05:08] LABS: Eosinophils % 1.8 %; Hematocrit 35.8 % (37.0-47.0); Hemoglobin 11.5 g/dL (11.5-15.3); Lymphocytes # 0.7 10^3/uL (0.8-4.8); Mean Corpuscular HGB Conc 32.1 g/dL (30.0-36.0); Mean Corpuscular Hemoglobin 31.7 pg (28.0-34.0); Mean Corpuscular Volume 98.6 fl (81-99); Mean Platelet Volume 10.5 fL (7.4-10.4); Monocytes # 0.7 10^3/uL (0.2-0.9); Monocytes % 29.8 %; Neutrophils % 33.7 %; Nucleated Red Blood Cells % 0 %; Platelet Count 123 10^3/cmm (130-400); Red Blood Count 3.63 10^6/uL (4.1-5.3); Red Cell Distribution Width 13.9 % (12.1-15.1); White Blood Count 2.3 10^3/uL (4.0-10.0)
[2022-05-27 05:12] LABS: Neutrophils # 0.76 10^3/uL (1.8-7.7)
[2022-05-27 05:32] LABS: Alanine Aminotransferase 27 U/L (0-33); Albumin Level 3.1 g/dL (3.5-5.2); Alkaline Phosphatase 78 U/L (35-105); Anion Gap 15.2 (5-19); Aspartate Amino Transferase 33 U/L (0-32); Blood Urea Nitrogen 25 mg/dL (8-23); C Reactive Protein 10.6 mg/L (0.0-4.9); Calcium 9.5 mg/dL (8.5-10.5); Carbon Dioxide 35 mmol/L (22-29); Chloride 96 mmol/L (98-107); Globulin 2.4 g/dL (1.3-4.6); Glucose 143 mg/dL (65-115); Osmolality Calculated 301 mOsm/kg (285-295); Potassium 4.2 mmol/L (3.5-5.1); Sodium 142 mmol/L (136-145); Total Bilirubin 0.4 mg/dL (0.15-1.2); Total Protein 5.5 g/dL (6.6-8.7)
[2022-05-27 06:25] LABS: Glucose Point of Care 129 mg/dL (70-110)
[2022-05-27] MEDS: budesonide 0.5 mg/2 mL Neb INHALATION (07:59)
[2022-05-27] MEDS: FUROsemide 40 mg Tablet 60 MG PO (08:26)
[2022-05-27] MEDS: ascorbic acid 500 mg Tablet PO (08:27)
[2022-05-27] MEDS: aspirin 81 mg EC Tablet PO (08:27)
[2022-05-27] MEDS: pantoprazole DR 40 mg Tablet PO (08:28)
[2022-05-27] MEDS: sennosides-docusate Tablet 1 TAB PO (08:28)
[2022-05-27] MEDS: levoFLOXacin 750 mg Tablet PO (08:29)
[2022-05-27] MEDS: dexamethasone 4 mg Tablet 6 MG PO (08:29)
[2022-05-27] MEDS: enoxaparin 40 mg/0.4 mL Syringe SUBCUT (08:30)
[2022-05-27] MEDS: metoprolol tartrate 25 mg Tablet PO (08:33)
--- NOTE | 2022-05-27 09:02 | P.DS_ITS ---
Discharge Providers Date of Admission: 05/21/22 15:40 Date of Discharge: May 27, 2022 Attending Provider at Admission: Js Davis MD Attending Provider at Discharge: Amalia Garcia MD Primary Care Provider: Sandro Montana Diagnoses at Discharge Discharge Diagnosis (1) Acute and chronic respiratory failure with hypoxia: Status: Acute (2) A-fib: Status: Acute (3) Thrombocytopenia: Status: Acute (4) CHF exacerbation: Status: Acute (5) COVID-19: Status: Acute Reason for Visit Reason for Visit: COVID Pneumonia Brief History: 86-year-old female with history of A. fib, CABG, CKD, COPD, osteoarthritis, type 2 diabetes mellitus presented to the hospital from [facility] for worsening chest x-ray.? Patient was diagnosed with COVID May 09.?She got 6 doses of remdesivir and 1 dose of dexamethasone at outside hospital.? Also had positive blood cultures Staph hominis and staph epidermidis at previous hospital however repeat cultures here have been negative.? Likely to be contaminants. After transfer she has been on dexamethasone 6 mg daily.? She also got 1 dose of Actemra on May 22 and received iv diuresis. CRP has trended down from 188 to 10. Patient required heated high flow initially but has slowly been able to be weaned down to nasal canula at 3lpm which is her baseline requirement. ? CT abdomen incidentally showed suspicious findings for cirrhosis portal hypertension, spleen enlarged.? 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 She will need outpatient follow up for the same. PErsisting porblem at this time is leukopenia, however EBC count improving at 2.3 today. This is likely 2/2 acute viral infection vs portal HTN. REcommend to be followed as outpatient. she is being dischargedf today in improved condition. Physical Exam Narrative: General: No acute distress, AO x3 HEENT: PERRLA, pupils bilaterally equal and reactive, pallors not present Chest: Normal vesicular breath sounds, no added sounds, equal good air entry bilaterally CVS: S1-S2 regular, no murmurs, no tachycardia, no gallops, no rubs Abdomen: Soft, nontender, no organomegaly, bowel sounds present Neuro: No focal deficits, no facial deformity, AO x3, power 5/5 in all limbs Extremities: no edema, clubbing or cyanosis Discharge Data Studies Completed and Pending Completed Studies During Hospitalization Category Date Time Status CT abdomen pelvis wo con [id number] Routine Cat Scan 05/22/22 07:17 Completed CTA PE [CT angio chest PE protcl [id number]] Routine Cat Scan 05/21/22 18:35 Completed XR chest 1V portable [id number] Routine Exams 05/22/22 12:25 Completed XR chest 1V portable [id number] Stat Exams 05/21/22 15:59 Completed CV. echo complete* [id number] Routine Ultrasound 05/21/22 18:35 Completed US venous duplex lower extremity bilat [CV venous Ultrasound 05/21/22 17:52 [place] [id number]] Routine Radiology Impressions Chest CTA 05/21/22 18:35 IMPRESSION: 1. No evidence of pulmonary embolism. 2. Diffuse bilateral ground-glass and confluent infiltrates noted throughout both lungs. Commonly reported imaging features of COVID-19 pneumonia are present. Other processes such as influenza pneumonia and organizing pneumonia, as can be seen with drug toxicity and connective tissue disease, can cause a similar imaging pattern. (Reference: Vijay) 3. Mild cardiomegaly is noted. 4. Nonspecific mild mediastinal adenopathy noted. Lymph nodes measuring up to 10 mm short axis are present. REFERENCES: Vijay Falcon, et al., [employer] Society of [place] Expert Consensus Statement on Reporting Chest CT Findings Related to COVID-19. Endorsed by the Society of Thoracic Radiology, the [place], and RSNA. Published December 14, 2019. Abdomen/Pelvis CT 05/22/22 07:17 IMPRESSION: 1. Dense areas of consolidation opacifications at the lung bases consistent with pneumonia. 2. No ascites or adenopathy. 3. 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 Spleen is enlarged. 4. Distal colon diverticulosis without acute diverticulitis. 5. No acute inflammatory process within the abdomen. 6. 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 Chest X-Ray 05/22/22 12:25 IMPRESSION: 1. Patchy infiltrates noted throughout both lungs suggesting pneumonia. No significant change. Laboratory Results WBC 2.3 10^3/uL (4.0-10.0) L 05/27/22 04:25 RBC 3.63 10^6/uL (4.1-5.3) L 05/27/22 04:25 Hgb 11.5 g/dL (11.5-15.3) 05/27/22 04:25 Hct 35.8 % (37.0-47.0) L 05/27/22 04:25 MCV 98.6 fl (81-99) 05/27/22 04:25 MCH 31.7 pg (28.0-34.0) 05/27/22 04:25 MCHC 32.1 g/dL (30.0-36.0) 05/27/22 04:25 RDW 13.9 % (12.1-15.1) 05/27/22 04:25 Plt Count 123 10^3/cmm (130-400) L 05/27/22 04:25 MPV 10.5 fL (7.4-10.4) H 05/27/22 04:25 Neut % (Auto) 33.7 % 05/27/22 04:25 Lymph % (Auto) 32.0 % 05/27/22 04:25 [place] % (Auto) 29.8 % 05/27/22 04:25 Eos % (Auto) 1.8 % 05/27/22 04:25 Baso % (Auto) 0.0 % 05/27/22 04:25 Neut # (Auto) 0.76 10^3/uL (1.8-7.7) L* 05/27/22 04:25 Lymph # (Auto) 0.7 10^3/uL (0.8-4.8) L 05/27/22 04:25 [place] # (Auto) 0.7 10^3/uL (0.2-0.9) 05/27/22 04:25 Eos # (Auto) 0.0 10^3/uL (0.0-0.8) 05/27/22 04:25 Baso # (Auto) 0.0 10^3/uL (0.0-0.1) 05/27/22 04:25 Nucleated RBC % (auto) 0 % 05/27/22 04:25 Nucleated RBCs # 0.0 /100WBC 05/27/22 04:25 PT 15.60 SECONDS (12.1-14.9) H 05/21/22 17:06 INR 1.21 (0.8-1.2) H 05/21/22 17:06 D-Dimer 1.26 ug/mIFEU (0-0.59) H 05/21/22 17:06 Specimen Type Arterial 05/22/22 04:52 Sample Site Radial, right 05/22/22 04:52 ABG pH 7.46 (7.35-7.45) H 05/22/22 04:52 ABG pCO2 40.7 mmHg (35-45) 05/22/22 04:52 ABG pO2 57.0 mmHg (80.0-100.0) L 05/22/22 04:52 ABG HCO3 29.0 mmol/L (22-26) H 05/22/22 04:52 ABG O2 Saturation 89.4 05/21/22 18:46 ABG Base Excess 4.7 mmol/L (-2.0-2.0) H 05/22/22 04:52 Arian Test Pos 05/22/22 04:52 A-a O2 Gradient 20.2 mmHg (5-10) H 05/21/22 18:46 Hematocrit 46.9 % (37-47) 05/22/22 04:52 Hgb O2 Saturation 87.6 % (95-100) L 05/21/22 18:46 Carboxyhemoglobin 1.4 %THgb (0.4-20.1) 05/21/22 18:46 Methemoglobin 0.7 % (0.4-1.5) 05/21/22 18:46 Total Hemoglobin 11.4 g/dL (12-16) L 05/21/22 18:46 Sodium 136.0 mmol/L (131-143) 05/21/22 18:46 Potassium 3.8 mmol/L (3.5-5.0) 05/21/22 18:46 Glucose 317.0 mg/dL (70-115) H 05/21/22 18:46 Ionized Calcium 1.2 mmol/L (1.1-1.4) 05/21/22 18:46 O2 Delivery Device Hag 05/22/22 04:52 O2 Liters/Min 30.0 % 05/22/22 04:52 FiO2 55.0 % 05/22/22 04:52 Binder Stripper Machine ID Manuel 05/22/22 04:52 Sodium 142 mmol/L (136-145) 05/27/22 04:25 Potassium 4.2 mmol/L (3.5-5.1) 05/27/22 04:25 Chloride 96 mmol/L (98-107) L 05/27/22 04:25 Carbon Dioxide 35 mmol/L (22-29) H 05/27/22 04:25 Anion Gap 15.2 (5-19) 05/27/22 04:25 BUN 25 mg/dL (8-23) H 05/27/22 04:25 Creatinine 0.7 mg/dL (0.5-0.9) 05/27/22 04:25 GFR Calculation Not Reportable 05/27/22 04:25 Glucose 143 mg/dL (65-115) H 05/27/22 04:25 POC Glucose 129 mg/dL (70-110) H 05/27/22 06:10 Estimat Average Glucose 166 05/23/22 05:21 Hemoglobin A1c 7.4 % (4.0-6.0) H 05/23/22 05:21 Calculated Osmolality 301 mOsm/kg (285-295) H 05/27/22 04:25 Lactic Acid 2.3 mmol/L (0.5-2.2) H 05/21/22 17:06 Lactic Acid (Sepsis) 3.0 mmol/L (0.5-2.2) H 05/21/22 21:40 Lactate 2.2 mmol/L (0.5-2.2) 05/22/22 04:10 Calcium 9.5 mg/dL (8.5-10.5) 05/27/22 04:25 Phosphorus 2.9 mg/dL (2.5-4.5) 05/21/22 17:06 Magnesium 2.2 mg/dL (1.7-2.3) 05/25/22 05:00 Ferritin 461 ng/mL (15-150) H 05/22/22 04:10 Total Bilirubin 0.4 mg/dL (0.15-1.2) 05/27/22 04:25 AST 33 U/L (0-32) H 05/27/22 04:25 ALT 27 U/L (0-33) 05/27/22 04:25 Alkaline Phosphatase 78 U/L (35-105) 05/27/22 04:25 Troponin T Gen 5 ng/L 9 ng/L (0-10) 05/21/22 17:06 C-Reactive Protein 10.6 mg/L (0.0-4.9) H 05/27/22 04:25 NT-Pro-B Natriuret Pep 900 pg/mL (0-450) H 05/21/22 17:06 Total Protein 5.5 g/dL (6.6-8.7) L 05/27/22 04:25 Albumin 3.1 g/dL (3.5-5.2) L 05/27/22 04:25 Globulin 2.4 g/dL (1.3-4.6) 05/27/22 04:25 Triglycerides 135 mg/dL (0-150) 05/21/22 17:06 Triglycerides Cancelled 05/21/22 17:06 Cholesterol 86 mg/dL (0-200) 05/21/22 17:06 Cholesterol Cancelled 05/21/22 17:06 LDL Cholesterol, Calc 32 mg/dL (50-129) L 05/21/22 17:06 LDL Cholesterol, Calc Cancelled 05/21/22 17:06 HDL Cholesterol 27 mg/dL (60-100) L 05/21/22 17:06 HDL Cholesterol Cancelled 05/21/22 17:06 LDL/HDL Ratio 1.19 RATIO (0.00-3.22) 05/21/22 17:06 LDL/HDL Ratio Cancelled 05/21/22 17:06 Cholesterol/HDL Ratio 3.19 mg/dL (0.0-4.40) 05/21/22 17:06 Cholesterol/HDL Ratio Cancelled 05/21/22 17:06 Procalcitonin 0.14 ng/mL (0-0.5) 05/21/22 17:06 TSH 1.38 uIU/mL (0.27-4.20) 05/22/22 04:10 Urine Color Yellow (Yellow) 05/21/22 22:55 Urine Appearance Clear (CLEAR) 05/21/22 22:55 Urine pH 6 (5-7) 05/21/22 22:55 Ur Specific [place] 1.010 (1.005-1.030) 05/21/22 22:55 Urine Protein Neg (Negative) 05/21/22 22:55 Urine Glucose (UA) Norm (Normal) 05/21/22 22:55 Urine Ketones Negative (Negative) 05/21/22 22:55 Urine Blood Neg (Negative) 05/21/22 22:55 Urine Nitrate Negative (Negative) 05/21/22 22:55 Urine Bilirubin Neg (Negative) 05/21/22 22:55 Urine Urobilinogen Norm mg/dL (Negative) 05/21/22 22:55 Ur Leukocyte Esterase Negative (Negative) 05/21/22 22:55 Digoxin 1.1 ng/mL (0.6-1.2) 05/24/22 14:38 Vitals Last Vital Signs Temp 98.1 F 05/27/22 08:00 Pulse 95 05/27/22 08:07 Resp 20 H 05/27/22 08:07 BP 137/82 05/27/22 08:00 Pulse Ox 96 05/27/22 08:07 O2 Del Method 05/27/22 08:07 O2 Flow Rate 3 05/27/22 08:07 FiO2 35 05/25/22 18:52 Discharge Plan Discharge Patient Disposition: Home Condition: Stable Prescriptions: New prednisone 10 mg tablets,dose pack See Rx Instructions .ROUTE .COMPLEX Qty: 21 0RF Rx Instructions: prednisone 5 mg: take 8 tablets (40 mg) on Day 1; 7 tablets (35 mg) on Day 2; then decrease by 1 tablet every day until finished pantoprazole 40 mg Tablet,Delayed Release (Dr/Ec) 40 mg PO DAILY 30 Days Qty: 30 0RF levofloxacin 750 mg Tablet 750 mg PO DAILY 3 Days Qty: 3 0RF Continued glipizide 5 mg tablet 5 mg PO DAILY furosemide 80 mg tablet 80 mg PO DAILY metoprolol tartrate 50 mg tablet 50 mg PO BID simvastatin 40 mg tablet 40 mg PO QPM gemfibrozil 600 mg tablet 600 mg PO BID Spiriva with HandiHaler 18 mcg capsule, w/inhalation device 1 cap INHALATION DAILY multivitamin [One A Day] Tablet 1 tab PO DAILY ascorbic acid (vitamin C) [Vitamin C] 500 mg Tablet 500 mg PO DAILY glucosamine sulfate 1,000 mg Capsule 1,000 mg PO DAILY Rx Instructions: administer with a meal potassium chloride 10 mEq capsule, extended release 10 meq PO BID Aspir-81 81 mg Tablet,Delayed Release (Dr/Ec) 81 mg PO DAILY budesonide 0.5 mg/2 mL Suspension For Nebulization 0.5 mg INHALATION BID albuterol sulfate 90 mcg/actuation Hfa Aerosol Inhaler 2 puff INHALATION QID PRN (Reason: Shortness Of Breath) Vitamin D3 10 mcg (400 unit) Tablet 10 mcg PO DAILY Vitamin D3 25 mcg (1,000 unit) Tablet 25 mcg PO DAILY Discharge Orders: Discharge Order (Routine); Ordered 05/27/22 Ordered By: Amalia Garcia Discharge Diet: Usual diet Discharge Activity: Resume usual activity Patient Instructions: Opioid Safety Discharge Attestations Time Spent in Discharge Care*: greater than 30 min Quality Metrics Clinical Quality Measures [ No reported AMI, CVA or VTE this stay] Coding Level of Care Code Acute g [facility] note Diagnoses Acute and chronic respiratory failure with hypoxia J96.21 A-fib I48.91 Thrombocytopenia D69.6 CHF exacerbation I50.9 COVID-19 U07.1
[2022-05-27 11:52] LABS: Glucose Point of Care 262 mg/dL (70-110)
[2022-05-27] MEDS: insulin lispro 100 unit/1 mL SUBCUT (12:09)
== END 2022-05-27 13:00 | disposition home health service (06) | DRG 177 ==
PROVIDERS: Internal Medicine; Admitting Provider Internal Medicine; PCP Family Medicine; Visit Provider Student in an Organized Health Care Education/Training Program
DX: U07.1 COVID-19 (principal); I50.33 Acute on chronic diastolic (congestive) heart failure; J12.82 Pneumonia due to coronavirus disease 2019; J96.21 Acute and chronic respiratory failure with hypoxia; I13.0 Hypertensive heart and chronic kidney disease with heart failure and stage 1 through stage 4 chronic kidney disease, or unspecified chronic kidney disease; K55.1 Chronic vascular disorders of intestine; K76.6 Portal hypertension; I48.91 Unspecified atrial fibrillation; Z99.81 Dependence on supplemental oxygen; J44.9 Chronic obstructive pulmonary disease, unspecified; Z87.891 Personal history of nicotine dependence; Z66 Do not resuscitate; N18.9 Chronic kidney disease, unspecified; E11.22 Type 2 diabetes mellitus with diabetic chronic kidney disease; M19.90 Unspecified osteoarthritis, unspecified site; Z95.1 Presence of aortocoronary bypass graft; D69.6 Thrombocytopenia, unspecified; Z79.51 Long term (current) use of inhaled steroids; Z79.82 Long term (current) use of aspirin; Z79.84 Long term (current) use of oral hypoglycemic drugs; K74.60 Unspecified cirrhosis of liver
CPT/HCPCS: 36415; 36416; 36592; 36600; 71045; 71275; 74176; 80048; 80051; 80053; 80061; 80162; 81003; 82330; 82728; 82803; 82805; 82962; 83036; 83605; 83735; 83880; 84100; 84145; 84443; 84484; 85025; 85378; 85610; 86140; 86403; 87040; 87070; 87086; 87205; 87449; 87641; 93005; 93306; 93970; 94640; 94664; 94760; 96372; 97110; 97116; 97162; 97165; 97530; J0696; J0743; J1160; J1650; J1815; J1940; J3262; J7626; J8540; Q0144; Q9967